=== PATIENT | female | born 1945 | race African-American/Black ===

== ENCOUNTER 2024-03-07 09:04 | Inpatient (IN) | payer OTHER ==
[2024-03-07] MEDS: SODIUM CHLORIDE 0.9% 500 ML INFUS.BAG IV ONE (10:08)
[2024-03-07 10:34] LABS: MAGNESIUM 2.3 mg/dL (1.8-2.4)
[2024-03-07 10:38] LABS: PHOSPHOROUS 3.8 mg/dL (2.5-4.9)
[2024-03-07 10:50] LABS: BASO % 0.5 % (0-2.0); EOS % 1.1 % (0-4.5); HEMATOCRIT 40.8 % (32.4-45.2); HEMOGLOBIN 13.7 GM/dL (10.7-15.3); LYMPH % 10.7 % (8-40); MCH 31.8 pg (25.7-33.7); MCHC 33.6 g/dl (32.0-36.0); MEAN CELL VOLUME 94.9 fl (80-96); MONO % 8.8 % (3.8-10.2); NEUT % 78.9 % (42.8-82.8); PLATELET COUNT 299 10^3/uL (134-434); RBC 4.31 M/mm3 (3.60-5.2); RDW 14.1 % (11.6-15.6); WHITE BLOOD COUNT 8.8 K/mm3 (4.0-10.0)
[2024-03-07 10:53] LABS: LACTIC ACID 2.7 mmol/L (0.4-2.0)
[2024-03-07] MEDS: LACTATED RINGERS SOLUTION 1000 ML INFUS.BAG IV ONE (11:18)
[2024-03-07 12:48] LABS: POTASSIUM 5.7 mmol/L (3.5-5.1)
[2024-03-07 12:51] LABS: CALCIUM 9.2 mg/dL (8.5-10.1)
[2024-03-07 12:52] LABS: ALBUMIN 3.4 g/dl (3.4-5.0); BLOOD UREA NITROGEN 14.7 mg/dL (7-18)
[2024-03-07 12:55] LABS: CREATININE 0.6 mg/dL (0.55-1.3)
[2024-03-07 12:56] LABS: TOT PROT 8.3 g/dl (6.4-8.2)
[2024-03-07 12:57] LABS: BILIRUBIN,TOTAL 0.4 mg/dL (0.2-1)
[2024-03-07 13:21] LABS: EPI CELLS 8 /uL (0-25.1); HYALINE CASTS 0 /uL (0-3.1); PH,URINE 5.5 (5.0-8.0); URINE APPEARANCE CLOUDY; URINE BACTERIA 799 /uL (0-1359); URINE BILIRUBIN NEGATIVE (NEGATIVE); URINE COLOR YELLOW; URINE GLUCOSE (UA) NEGATIVE (NEGATIVE); URINE KETONE NEGATIVE (NEGATIVE); URINE LEUK ESTERASE 2+ (NEGATIVE); URINE NITRITE NEGATIVE (NEGATIVE); URINE PROTEIN TRACE (NEGATIVE); URINE UROBILINOGEN 0.2 mg/dL (0.2-1.0); URINE WBC 6 /uL (0-25.8)
[2024-03-07] MEDS: CEFTRIAXONE 1 GM in DEXTROSE 5%-WATER - 100 ML IVPB ONE (15:28)
[2024-03-07] MEDS ORDERED: CEFTRIAXONE 1 GM/50 ML BAG ONE (15:28)
[2024-03-07 15:38] LABS: URINE RBC 62 /uL (0-23.9)
[2024-03-07 16:54] VITALS: BMI 20.5
[2024-03-07] MEDS: DEXTROSE 5%-0.45% SALINE 1,000 ML IV SCH (18:10)
[2024-03-07] MEDS: carBAMazepine 100 MG/5 ML UNIT-DOSE CUP PO SCH (20:06)
[2024-03-07] MEDS: ZINC OXIDE 20% TOPICAL OINTMENT 30 GM TUBE TP SCH (21:36)
[2024-03-07] MEDS: RIVAROXABAN 20 MG TABLET PO SCH (21:36)
[2024-03-07] MEDS: ATORVASTATIN CA 10 MG TABLET (FP) PO SCH (21:36)
[2024-03-07] MEDS: MIRTAZAPINE 15 MG TABLET (FP) PO SCH (21:36)
[2024-03-08 08:46] LABS: HEMATOCRIT 35.4 % (32.4-45.2); HEMOGLOBIN 12.1 GM/dL (10.7-15.3); MCHC 34.2 g/dl (32.0-36.0); MEAN CELL VOLUME 93.7 fl (80-96); MEAN PLT VOLUME 7.5 fl (7.5-11.1); PLATELET COUNT 243 10^3/uL (134-434); RBC 3.78 M/mm3 (3.60-5.2); RDW 13.2 % (11.6-15.6); WHITE BLOOD COUNT 5.1 K/mm3 (4.0-10.0)
[2024-03-08 08:56] LABS: POTASSIUM 3.4 mmol/L (3.5-5.1)
[2024-03-08 09:08] LABS: CALCIUM 8.3 mg/dL (8.5-10.1)
[2024-03-08 09:09] LABS: BLOOD UREA NITROGEN 5.1 mg/dL (7-18); MAGNESIUM 1.8 mg/dL (1.8-2.4)
[2024-03-08 09:12] LABS: CREATININE 0.3 mg/dL (0.55-1.3)
[2024-03-08] MEDS: ASPIRIN COATED 81 MG TABLET.EC PO SCH (10:44)
[2024-03-08] MEDS: CHOLECALCIFEROL (VIT D3) 1,000 UNIT (25 MCG) TABLET PO SCH (10:44)
[2024-03-08] MEDS: FERROUS SO4 300 MG/5 ML ORAL SOLN UNIT DOSE CUPS PO SCH (10:44)
[2024-03-08] MEDS: ARTIFICIAL TEARS OPHTHALMIC DROPS OU SCH (10:47)
[2024-03-09 09:02] LABS: BASO % 0.6 % (0-2.0); EOS % 5.1 % (0-4.5); HEMATOCRIT 33.2 % (32.4-45.2); HEMOGLOBIN 10.9 GM/dL (10.7-15.3); LYMPH % 29.8 % (8-40); MCH 31.6 pg (25.7-33.7); MCHC 32.8 g/dl (32.0-36.0); MEAN CELL VOLUME 96.3 fl (80-96); MEAN PLT VOLUME 7.5 fl (7.5-11.1); NEUT % 52.5 % (42.8-82.8); PLATELET COUNT 190 10^3/uL (134-434); RBC 3.45 M/mm3 (3.60-5.2); WHITE BLOOD COUNT 7.2 K/mm3 (4.0-10.0)
[2024-03-09 09:03] LABS: MAGNESIUM 1.6 mg/dL (1.8-2.4)
[2024-03-09 09:06] LABS: CREATININE 0.4 mg/dL (0.55-1.3)
[2024-03-09 09:07] LABS: BILIRUBIN,TOTAL 0.5 mg/dL (0.2-1)
[2024-03-09 09:41] LABS: ALBUMIN 2.4 g/dl (3.4-5.0)
[2024-03-09] MEDS: CEFTRIAXONE 1 GM in DEXTROSE 5%-WATER - 50 ML IVPB SCH (10:10)
[2024-03-09] MEDS: MAGNESIUM OXIDE 400 MG TABLET (FP) PO ONE (15:55)
[2024-03-09] MEDS: POTASSIUM CHLORIDE ORAL LIQUID 20 MEQ/15 ML PO ONE ×2 (15:56→21:35)
[2024-03-10 07:34] LABS: BASO % 0.8 % (0-2.0); EOS % 4.7 % (0-4.5); HEMATOCRIT 33.6 % (32.4-45.2); HEMOGLOBIN 11.4 GM/dL (10.7-15.3); LYMPH % 23.2 % (8-40); MCH 31.8 pg (25.7-33.7); MCHC 33.8 g/dl (32.0-36.0); MEAN PLT VOLUME 7.4 fl (7.5-11.1); MONO % 10.5 % (3.8-10.2); NEUT % 60.8 % (42.8-82.8); PLATELET COUNT 232 10^3/uL (134-434); RBC 3.57 M/mm3 (3.60-5.2); RDW 13.4 % (11.6-15.6); WHITE BLOOD COUNT 7.1 K/mm3 (4.0-10.0)
[2024-03-10 07:54] LABS: CHLORIDE 107 mmol/L (98-107); POTASSIUM 3.7 mmol/L (3.5-5.1); SODIUM 137 mmol/L (136-145)
[2024-03-10 07:56] LABS: CALCIUM 8.2 mg/dL (8.5-10.1)
[2024-03-10 07:57] LABS: ALBUMIN 2.6 g/dl (3.4-5.0); ANION GAP 4 mmol/L (4-13); CO2 26 mmol/L (21-32); GLUCOSE,RANDOM 101 mg/dL (74-106); MAGNESIUM 1.8 mg/dL (1.8-2.4)
[2024-03-10 08:00] LABS: CREATININE 0.4 mg/dL (0.55-1.3); SGOT/AST 19 U/L (15-37); SGPT/ALT 19 U/L (13-61)
[2024-03-10 08:02] LABS: BILIRUBIN,TOTAL 0.3 mg/dL (0.2-1); TOT PROT 6.4 g/dl (6.4-8.2)
[2024-03-10 08:03] LABS: ALK PHOS 80 U/L (45-117)
[2024-03-10 08:04] LABS: BLOOD UREA NITROGEN 2.2 mg/dL (7-18)
[2024-03-12 15:13] VITALS: RESP 20
[2024-03-12] MEDS: RIVAROXABAN 20 MG TABLET PO SCH (21:35)
[2024-03-12 23:42] VITALS: BP 142/77; PULSE 74; TEMP 98.8
== END 2024-03-13 00:25 | DRG 392 ==
LOC: JER 09:04 → JERBED 11:12 → J8W 16:04 → OBSVTOIN 17:08
PROVIDERS: ADMIT Internal Medicine; ATTEND Nurse Practitioner Acute Care
DX: K52.9 Noninfective gastroenteritis and colitis, unspecified (principal); E87.20 Acidosis, unspecified; N39.0 Urinary tract infection, site not specified; R78.81 Bacteremia; G40.909 Epilepsy, unspecified, not intractable, without status epilepticus; F03.90 Unspecified dementia, unspecified severity, without behavioral disturbance, psychotic disturbance, mood disturbance, and anxiety; R11.2 Nausea with vomiting, unspecified; E86.0 Dehydration; E78.5 Hyperlipidemia, unspecified; K44.9 Diaphragmatic hernia without obstruction or gangrene; K76.0 Fatty (change of) liver, not elsewhere classified; B96.20 Unspecified Escherichia coli [E. coli] as the cause of diseases classified elsewhere; B96.89 Other specified bacterial agents as the cause of diseases classified elsewhere; B95.7 Other staphylococcus as the cause of diseases classified elsewhere; Z86.718 Personal history of other venous thrombosis and embolism
CPT/HCPCS: 0241U-QW; 36415; 74177-TC; 80048; 80053; 81003; 82962; 83605; 83690; 83735; 84100; 84443; 84484; 85025; 85027; 86850; 86900; 86901; 87040; 87086; 87186; 87635; 93005; 93010; 99285-25; G0378; Q9967

== ENCOUNTER 2024-08-11 22:30 | Inpatient (IN) | payer OTHER ==
[2024-08-12] MEDS: SODIUM CHLORIDE 0.9% 500 ML INFUS.BAG IV ONE (00:24)
[2024-08-12 01:00] LABS: INR 1.31 (0.83-1.09); PROTHROMBIN TIME (PATIENT) 14.9 SEC (9.7-13.0)
[2024-08-12 01:03] LABS: ACTIVATED PTT 28.2 SECONDS (25.2-36.5)
[2024-08-12 01:05] LABS: POTASSIUM 4.2 mmol/L (3.5-5.1)
[2024-08-12 01:07] LABS: BLOOD UREA NITROGEN 30.7 mg/dL (7-18); CALCIUM 8.1 mg/dL (8.5-10.1)
[2024-08-12 01:08] LABS: ALBUMIN 3.1 g/dl (3.4-5.0)
[2024-08-12 01:11] LABS: CREATININE 0.7 mg/dL (0.55-1.3)
[2024-08-12 01:13] LABS: BILIRUBIN,TOTAL 0.3 mg/dL (0.2-1); TOT PROT 7.3 g/dl (6.4-8.2)
[2024-08-12 01:38] LABS: HEMATOCRIT 39.4 % (32.4-45.2); HEMOGLOBIN 12.4 GM/dL (10.7-15.3); MCH 30.3 pg (25.7-33.7); MCHC 31.6 g/dl (32.0-36.0); MEAN CELL VOLUME 95.9 fl (80-96); MEAN PLT VOLUME 8.3 fl (7.5-11.1); PLATELET COUNT 238 10^3/uL (134-434); RDW 14.4 % (11.6-15.6); WHITE BLOOD COUNT 21.1 K/mm3 (4.0-10.0)
[2024-08-12 02:34] LABS: EPI CELLS 18 /uL (0-25.1); HYALINE CASTS 1 /uL (0-3.1); PH,URINE 5.5 (5.0-8.0); URINE APPEARANCE CLEAR; URINE BACTERIA 6 /uL (0-1359); URINE BILIRUBIN NEGATIVE (NEGATIVE); URINE COLOR YELLOW; URINE GLUCOSE (UA) NEGATIVE (NEGATIVE); URINE KETONE NEGATIVE (NEGATIVE); URINE LEUK ESTERASE NEGATIVE (NEGATIVE); URINE NITRITE NEGATIVE (NEGATIVE); URINE PROTEIN TRACE (NEGATIVE); URINE WBC 30 /uL (0-25.8)
[2024-08-12] MEDS ORDERED: VANCOMYCIN 1 GRAM (PRE-DOCKED) 1,000 MG/250 ML BAG IVPB ONE (02:57)
[2024-08-12] MEDS ORDERED: PIPERACILLIN/TAZOB 4.5 GM 4.5 GM/100 ML BAG IVPB ONE (03:30)
[2024-08-12] MEDS: PIPERACILLIN/TAZOB 4.5 GM 4.5 GM in DEXTROSE 5%-WATER 100 ML IVPB ONE (03:39)
[2024-08-12] MEDS: VANCOMYCIN 1,000 MG in DEXTROSE 5%-WATER - 250 ML IVPB ONE (04:05)
[2024-08-12 06:07] LABS: URINE RBC 232.9 /uL (0-23.9)
[2024-08-12] MEDS ORDERED: ACETAMINOPHEN 325 MG TABLET (FP) PO PRN (06:48)
[2024-08-12] MEDS: LACTATED RINGERS SOLUTION 1,000 ML/1,000 ML INFUS.BAG IV SCH ×2 (08:08→11:21)
[2024-08-12] MEDS: ASPIRIN COATED 81 MG TABLET.EC PO SCH (10:23)
[2024-08-12] MEDS: CHOLECALCIFEROL (VIT D3) 1,000 UNIT (25 MCG) TABLET PO SCH (10:24)
[2024-08-12] MEDS: ARTIFICIAL TEARS OPHTHALMIC DROPS OU SCH (10:24)
[2024-08-12] MEDS: PANTOPRAZOLE SOD 40 MG SUSPENSION PACKET PO SCH (11:26)
[2024-08-12] MEDS: carBAMazepine 100 MG/5 ML UNIT-DOSE CUP PO SCH (12:55)
[2024-08-12 13:28] LABS: MAGNESIUM 2.1 mg/dL (1.8-2.4)
[2024-08-12] MEDS: RIVAROXABAN 20 MG TABLET PO SCH (17:48)
[2024-08-12] MEDS ORDERED: PNEUMOC 20-VAL CONJ-DIP CRM/PF 0.5 ML SYRINGE IM ONE (18:00)
[2024-08-12] MEDS: PIPERACILLIN/TAZOB 3.375 GM 50 ML IVPB SCH (20:05)
[2024-08-12] MEDS: ATORVASTATIN CA 20 MG TABLET (FP) PO SCH (21:24)
[2024-08-12] MEDS: MIRTAZAPINE 15 MG TABLET (FP) PO SCH (21:24)
[2024-08-13 09:37] LABS: BASO % 0.9 % (0-2.0); EOS % 2.3 % (0-4.5); HEMATOCRIT 33.1 % (32.4-45.2); LYMPH % 14.9 % (8-40); MCH 31.3 pg (25.7-33.7); MCHC 33.2 g/dl (32.0-36.0); MEAN CELL VOLUME 94.2 fl (80-96); MEAN PLT VOLUME 8.7 fl (7.5-11.1); MONO % 6.6 % (3.8-10.2); NEUT % 75.3 % (42.8-82.8); PLATELET COUNT 184 10^3/uL (134-434); RBC 3.51 M/mm3 (3.60-5.2); RDW 14.7 % (11.6-15.6); WHITE BLOOD COUNT 10.9 K/mm3 (4.0-10.0)
[2024-08-13 10:48] LABS: POTASSIUM 3.3 mmol/L (3.5-5.1)
[2024-08-13 10:56] LABS: BLOOD UREA NITROGEN 10.6 mg/dL (7-18); CALCIUM 7.9 mg/dL (8.5-10.1)
[2024-08-13 10:59] LABS: CREATININE 0.4 mg/dL (0.55-1.3)
[2024-08-13] MEDS: D5-1/2NS+20 MEQ KCL - 20 MEQ/1,000 ML INFUS.BAG IV SCH ×2 (11:46→15:25)
[2024-08-13] MEDS: MUPIROCIN 2% TOPICAL OINTMENT 22 GM TUBE TP SCH (22:35)
[2024-08-14] MEDS: PANTOPRAZOLE SOD 40 MG SUSPENSION PACKET PO SCH (08:02)
[2024-08-14 09:49] LABS: BASO % 0.8 % (0-2.0); EOS % 3.3 % (0-4.5); HEMOGLOBIN 11.5 GM/dL (10.7-15.3); LYMPH % 28.2 % (8-40); MCH 31.1 pg (25.7-33.7); MCHC 32.8 g/dl (32.0-36.0); MEAN CELL VOLUME 94.9 fl (80-96); MEAN PLT VOLUME 8.4 fl (7.5-11.1); MONO % 5.1 % (3.8-10.2); NEUT % 62.6 % (42.8-82.8); PLATELET COUNT 199 10^3/uL (134-434); RBC 3.69 M/mm3 (3.60-5.2); RDW 14.7 % (11.6-15.6); WHITE BLOOD COUNT 6.3 K/mm3 (4.0-10.0)
[2024-08-14 10:04] LABS: POTASSIUM 3.7 mmol/L (3.5-5.1)
[2024-08-14 10:06] LABS: BLOOD UREA NITROGEN 5.8 mg/dL (7-18); CALCIUM 8.5 mg/dL (8.5-10.1)
[2024-08-14 10:10] LABS: CREATININE 0.4 mg/dL (0.55-1.3)
[2024-08-15] MEDS ORDERED: MUPIROCIN 2% TOPICAL OINTMENT 22 GM TUBE TP SCH (10:00)
[2024-08-15 11:55] LABS: BASO % 1.4 % (0-2.0); EOS % 4.9 % (0-4.5); HEMATOCRIT 36.6 % (32.4-45.2); HEMOGLOBIN 12.1 GM/dL (10.7-15.3); LYMPH % 32.8 % (8-40); MCH 31.2 pg (25.7-33.7); MCHC 33.1 g/dl (32.0-36.0); MEAN CELL VOLUME 94.2 fl (80-96); MEAN PLT VOLUME 8.2 fl (7.5-11.1); MONO % 9.3 % (3.8-10.2); NEUT % 51.6 % (42.8-82.8); PLATELET COUNT 230 10^3/uL (134-434); RBC 3.88 M/mm3 (3.60-5.2); RDW 14.7 % (11.6-15.6); WHITE BLOOD COUNT 5.3 K/mm3 (4.0-10.0)
[2024-08-15 12:24] LABS: POTASSIUM 4.1 mmol/L (3.5-5.1)
[2024-08-15 12:25] LABS: BLOOD UREA NITROGEN 7.1 mg/dL (7-18); CALCIUM 8.6 mg/dL (8.5-10.1)
[2024-08-15 12:29] LABS: CREATININE 0.5 mg/dL (0.55-1.3)
[2024-08-16 10:59] LABS: BASO % 1.4 % (0-2.0); EOS % 4.9 % (0-4.5); HEMATOCRIT 37.5 % (32.4-45.2); HEMOGLOBIN 12.1 GM/dL (10.7-15.3); MCHC 32.2 g/dl (32.0-36.0); MEAN CELL VOLUME 96.5 fl (80-96); MEAN PLT VOLUME 8.3 fl (7.5-11.1); MONO % 9.1 % (3.8-10.2); NEUT % 48.6 % (42.8-82.8); PLATELET COUNT 216 10^3/uL (134-434); RBC 3.89 M/mm3 (3.60-5.2); RDW 14.6 % (11.6-15.6); WHITE BLOOD COUNT 5.4 K/mm3 (4.0-10.0)
[2024-08-16 11:13] LABS: POTASSIUM 4.3 mmol/L (3.5-5.1)
[2024-08-16 11:15] LABS: CALCIUM 8.7 mg/dL (8.5-10.1)
[2024-08-16 11:16] LABS: BLOOD UREA NITROGEN 9.4 mg/dL (7-18)
[2024-08-16 11:19] LABS: CREATININE 0.4 mg/dL (0.55-1.3)
[2024-08-17] VITALS: BMI 20.2
[2024-08-17 10:17] LABS: BASO % 1.2 % (0-2.0); EOS % 4.8 % (0-4.5); HEMATOCRIT 35.9 % (32.4-45.2); HEMOGLOBIN 11.9 GM/dL (10.7-15.3); LYMPH % 35.9 % (8-40); MCH 31.4 pg (25.7-33.7); MCHC 33.2 g/dl (32.0-36.0); MEAN CELL VOLUME 94.6 fl (80-96); MEAN PLT VOLUME 8.5 fl (7.5-11.1); MONO % 8.3 % (3.8-10.2); NEUT % 49.8 % (42.8-82.8); PLATELET COUNT 244 10^3/uL (134-434); RDW 14.5 % (11.6-15.6); WHITE BLOOD COUNT 5.4 K/mm3 (4.0-10.0)
[2024-08-17 10:35] LABS: POTASSIUM 4.3 mmol/L (3.5-5.1)
[2024-08-17 11:10] LABS: CALCIUM 8.7 mg/dL (8.5-10.1)
[2024-08-17 11:13] LABS: BLOOD UREA NITROGEN 6.6 mg/dL (7-18)
[2024-08-17 11:14] LABS: CREATININE 0.5 mg/dL (0.55-1.3)
[2024-08-17] MEDS: ASCORBIC ACID 250 MG TABLET (FP) PO SCH (17:19)
[2024-08-17] MEDS: MULTIVITAMINS (DAILY MVI) TABLET (FP) PO SCH (17:19)
[2024-08-18 10:33] LABS: BASO % 0.9 % (0-2.0); EOS % 4.2 % (0-4.5); HEMATOCRIT 36.3 % (32.4-45.2); HEMOGLOBIN 11.9 GM/dL (10.7-15.3); LYMPH % 33.1 % (8-40); MCH 31.4 pg (25.7-33.7); MCHC 32.9 g/dl (32.0-36.0); MEAN CELL VOLUME 95.5 fl (80-96); MEAN PLT VOLUME 8.1 fl (7.5-11.1); MONO % 9.5 % (3.8-10.2); NEUT % 52.3 % (42.8-82.8); PLATELET COUNT 276 10^3/uL (134-434); RDW 14.2 % (11.6-15.6); WHITE BLOOD COUNT 6.4 K/mm3 (4.0-10.0)
[2024-08-18 10:40] LABS: POTASSIUM 4.1 mmol/L (3.5-5.1)
[2024-08-18 10:48] LABS: BLOOD UREA NITROGEN 9.1 mg/dL (7-18); CALCIUM 8.7 mg/dL (8.5-10.1)
[2024-08-18 10:52] LABS: CREATININE 0.6 mg/dL (0.55-1.3)
[2024-08-19] MEDS: AMOX TR/POT CLAV 500MG/125MG TABLETS (FP) PO SCH (08:55)
[2024-08-20 10:03] VITALS: BP 140/63; PULSE 78; RESP 16; TEMP 97.5
[2024-08-20] MEDS: PNEUMOC 20-VAL CONJ-DIP CRM/PF 0.5 ML SYRINGE IM ONE (11:39)
== END 2024-08-20 18:42 | DRG 871 ==
LOC: JER 22:30 → JERBED 08-12 05:49 → J6S 08-12 08:24
PROVIDERS: ADMIT Internal Medicine; ATTEND Internal Medicine
DX: A41.89 Other specified sepsis (principal); R53.2 Functional quadriplegia; E44.0 Moderate protein-calorie malnutrition; N93.8 Other specified abnormal uterine and vaginal bleeding; I95.89 Other hypotension; D72.829 Elevated white blood cell count, unspecified; F03.90 Unspecified dementia, unspecified severity, without behavioral disturbance, psychotic disturbance, mood disturbance, and anxiety; M62.81 Muscle weakness (generalized); K76.0 Fatty (change of) liver, not elsewhere classified; F32.A Depression, unspecified; E87.6 Hypokalemia; E78.5 Hyperlipidemia, unspecified; G47.00 Insomnia, unspecified; K44.9 Diaphragmatic hernia without obstruction or gangrene; G40.909 Epilepsy, unspecified, not intractable, without status epilepticus; E86.0 Dehydration; L89.152 Pressure ulcer of sacral region, stage 2; Z68.20 Body mass index [BMI] 20.0-20.9, adult; Z86.718 Personal history of other venous thrombosis and embolism
CPT/HCPCS: 0241U-QW; 36415; 71045-TC-FY; 74177-TC; 80048; 80053; 81003; 83605; 83735; 84100; 84484; 85025; 85610; 85730; 86850; 86900; 86901; 87086; 90677; 93005; 93010; 93308; 97161-GP; 99285-25; G0009; Q9967